=== PATIENT | female | born 1965 | race Caucasian/White ===

== ENCOUNTER 2023-08-14 09:35 | Emergency (ER) | payer BC, OTHER ==
[~2023-08-14] VITALS: Ht 149.9 cm; Wt 99.8 kg
[2023-08-14 09:39] VITALS: BP_SYST 160; PULSE 98; RESP 18; TEMP 97.1; O2SAT 98
[2023-08-14 10:38] LABS: BASOPHILS % (AUTO) 0.4 % (0.0-2.0); EOSINOPHILS # (AUTO) 0.3 K/uL (0.0-0.4); HEMATOCRIT 42.7 % (36-48); HEMOGLOBIN 14.3 g/dL (12.0-16.0); LYMPHOCYTES # (AUTO) 1.8 K/uL (1.0-5.5); MEAN CORPUSCULAR HEMOGLOBIN 28 pg (27-31); MEAN CORPUSCULAR HGB CONC 34 % (32-36); MEAN CORPUSCULAR VOLUME 82 fL (79.0-98.0); MONOCYTES # (AUTO) 0.4 K/uL (0.0-1.0); MONOCYTES % (AUTO) 5.5 % (1.7-9.3); NEUTROPHILS # (AUTO) 5.3 K/uL (1.8-7.7); NEUTROPHILS % (AUTO) 67.1 % (40.0-70.0); PLATELET COUNT (AUTO) 356 K/uL (130-430); RED BLOOD CELL COUNT(AUTO) 5.18 MIL/uL (4.2-6.2); RED CELL DISTRIBUTION WIDTH 15.5 % (9.0-15.0); WHITE BLOOD COUNT (AUTO) 7.9 K/uL (4.8-10.8)
[2023-08-14 10:49] LABS: INFLUENZA TYPE A Negative (NEGATIVE); INFLUENZA TYPE B NEGATIVE (NEGATIVE)
[2023-08-14] MEDS ORDERED: PRED20TA PO (11:47)
[2023-08-14] MEDS: DIPHENHYDRAMINE HCL 12.5 MG/5 ML UDC PO ONE (12:03)
[2023-08-14 12:10] VITALS: BP_SYST 122; PULSE 87; RESP 18; TEMP 98.2; O2SAT 96
== END 2023-08-14 12:11 | disposition home or self-care (01) ==
LOC: SED 09:35
DX: J20.9 Acute bronchitis, unspecified (principal); R05.9 Cough, unspecified; Z88.6 Allergy status to analgesic agent; Z79.899 Other long term (current) drug therapy; Z20.822 Contact with and (suspected) exposure to COVID-19
CPT/HCPCS: 36415; 71045; 83605; 83880; 84484; 85025; 99284